=== PATIENT | female | born 1930 | race Caucasian/White ===

== ENCOUNTER 2018-10-14 00:23 | Emergency (ER) | payer MEDICARE, OTHER ==
[2018-10-14] MEDS: HYDROCODONE/APAP (10/325) TAB PO (01:19)
== END 2018-10-14 03:00 | disposition home or self-care (01) ==
LOC: E/R 00:23
DX: S81.811A Laceration without foreign body, right lower leg, initial encounter (principal); I10 Essential (primary) hypertension; I25.10 Atherosclerotic heart disease of native coronary artery without angina pectoris; R40.2142 Coma scale, eyes open, spontaneous, at arrival to emergency department; R40.2362 Coma scale, best motor response, obeys commands, at arrival to emergency department; R40.2252 Coma scale, best verbal response, oriented, at arrival to emergency department; W01.0XXA Fall on same level from slipping, tripping and stumbling without subsequent striking against object, initial encounter; Y92.9 Unspecified place or not applicable; Z87.891 Personal history of nicotine dependence; Z98.61 Coronary angioplasty status
CPT/HCPCS: 12004; 70450; 72125; 73590; 99284-25